=== PATIENT | male | born 1970 | race Caucasian/White ===

== ENCOUNTER 2022-02-17 21:57 | Emergency (ER) | payer OTHER ==
[2022-02-17] MEDS ORDERED: 50% Dextrose in Water 50 ML Syringe IVPUSH ONE (22:34)
[2022-02-17] MEDS ORDERED: Lidocaine 1% 20 ML MDV INJECT ONE (22:36)
[2022-02-17] MEDS ORDERED: Bacitracin Oint 1 GM U/D Packet TOP ONE (22:37)
== END 2022-02-17 23:39 | disposition home or self-care (01) ==
LOC: JP.ED 21:57
DX: S61.012A Laceration without foreign body of left thumb without damage to nail, initial encounter (principal); Z72.0 Tobacco use; W26.0XXA Contact with knife, initial encounter
CPT/HCPCS: 12001; 99281; 99282-25